=== PATIENT | female | born 1960 | race Caucasian/White ===

== ENCOUNTER → 2024-07-13 07:01 | Outpatient (REF) | payer OTHER, SELFPAY | LOC: HWWDC 07:01 | PROVIDERS: ATTENDING PHYSICIAN Obstetrics & Gynecology; FAMILY PHYSICIAN Internal Medicine | DX: Z12.31 Encounter for screening mammogram for malignant neoplasm of breast (principal) | CPT/HCPCS: 77063; 77067 ==

== ENCOUNTER 2024-12-04 06:37 | Day surgery (SDC) | payer OTHER, SELFPAY ==
[2024-12-04] VITALS (17 sets, daily range): BP systolic 108–133; BP diastolic 66–84; BMI 26.6
[2024-12-04] MEDS: EMEND 40 MG PO (11:18)
[2024-12-04] MEDS: MOBIC 15 MG PO (11:18)
[2024-12-04] MEDS: NORMOSOL-R/PLASMALYTE-A 1000 IV (11:38)
--- NOTE | 2024-12-04 11:39 | PTCARENOTE ---
Patient complaining that it is very noisy in the unit because she had a patient on either side of her. Patient complaining that their was a male patient next to her. Apologized for the wait and patient stated twice she would rather have had surgery
at the surgi center. Patient also complaining to Anesthesiologist about multiple things. Will monitor patient.
[2024-12-04] MEDS: DILAUDID 0.25 MG IV (15:16)
[2024-12-04] MEDS: COMPAZINE 5 MG IV (16:16)
--- NOTE | 2024-12-04 16:35 | SUR.PHASEI ---
1545 (Ed) updated over phone on .
1621 Dr. Moran updated on pt still in PACU, sleepy, nauseous, and sat's low.
1630 updated over phone again on .
Will continue to monitor.
--- NOTE | 2024-12-04 17:05 | SUR.PHASEI ---
Gave IS to help improve sat's. Pt stating she is starting to feel better. Will move to SDS.
== END 2024-12-04 17:50 | disposition home or self-care (01) ==
LOC: SDS 06:37
PROVIDERS: ATTENDING PHYSICIAN Specialist
DX: N62 Hypertrophy of breast (principal); N60.12 Diffuse cystic mastopathy of left breast
CPT/HCPCS: 19318; 88305; 88311

== ENCOUNTER → 2025-08-10 09:23 | Outpatient (REF) | payer OTHER, SELFPAY | LOC: HWWDC 09:23 | PROVIDERS: ATTENDING PHYSICIAN Obstetrics & Gynecology; FAMILY PHYSICIAN Internal Medicine; REFERRING PHYSICIAN Internal Medicine | DX: Z12.31 Encounter for screening mammogram for malignant neoplasm of breast (principal) | CPT/HCPCS: 77063; 77067 ==

== ENCOUNTER → 2025-08-17 09:42 | Outpatient (REF) | payer OTHER, SELFPAY | LOC: WDC 09:42 | PROVIDERS: ATTENDING PHYSICIAN Obstetrics & Gynecology; FAMILY PHYSICIAN Internal Medicine | DX: R92.8 Other abnormal and inconclusive findings on diagnostic imaging of breast (principal) | CPT/HCPCS: 76642 ==